=== PATIENT | female | born 1940 | race Caucasian/White ===

== ENCOUNTER → 2018-02-07 | Outpatient (CLI) | payer MEDICARE, OTHER ==
[2015-09-21 11:14] VITALS: BMI 25.4
[~2018-02-07] MED LIST: AMLO-39 PO; AZIT-1 PO; CALC-852 PO; DULO30CA35 PO; FLU45SYR17 IM; FLU45SYR25 IM ONLY; HYDR-2966 PO; LEVO-85 PO; LEVO88TA45 PO; LIDO700A29 TD; METR-160 PO; MULT-27 PO; NAPR220C12 PO; OMEG-23 PO; PER PO; PNEI IM; PNEU0.5D3 IM; SIMV-49 PO; ZOST19404 SQ; [UNRECOGNIZED DRUG - CODE] PO
[2018-02-07 09:11] LABS: PLATELET COUNT, AUTOMATED 249 K/uL (150-450)
[2018-02-07 09:25] LABS: LDL CHOLESTEROL 97 mg/dl
== END ==
LOC: LAB 08:43
PROVIDERS: ATTEND Nurse Practitioner Family
DX: R73.01 Impaired fasting glucose (principal); E78.5 Hyperlipidemia, unspecified; E03.9 Hypothyroidism, unspecified; I10 Essential (primary) hypertension
CPT/HCPCS: 36415; 82040; 82247; 82310; 82374; 82435; 82465; 82565; 82947; 83036; 83718; 84075; 84132; 84155; 84295; 84443; 84450; 84460; 84478; 84520; 85025

== ENCOUNTER → 2018-08-16 | Outpatient (CLI) | payer MEDICARE, OTHER ==
[2015-09-21 11:14] VITALS: BMI 25.4
[~2018-08-16] MED LIST changes: +AMOX-559 PO; +HYDR30CR10 TP; +VARI50KI IM
[2018-08-16 10:02] LABS: PLATELET COUNT, AUTOMATED 239 K/uL (150-450)
[2018-08-16 10:46] LABS: LDL CHOLESTEROL 104 mg/dl
== END ==
LOC: LAB 09:31
PROVIDERS: ATTEND Nurse Practitioner Family
DX: E78.5 Hyperlipidemia, unspecified (principal); E03.9 Hypothyroidism, unspecified; I10 Essential (primary) hypertension; R73.01 Impaired fasting glucose
CPT/HCPCS: 36415; 82040; 82247; 82310; 82374; 82435; 82465; 82565; 82947; 83036; 83718; 84075; 84132; 84155; 84295; 84443; 84450; 84460; 84478; 84520; 85025

== ENCOUNTER → 2018-10-20 | Outpatient (CLI) | payer MEDICARE, OTHER ==
[2015-09-21 11:14] VITALS: BMI 25.4
[~2018-10-20] MED LIST changes: -METR-160 PO; +METR500T15 PO; +ROSU20TA5 PO
== END ==
LOC: LAB 10:22
PROVIDERS: ATTEND Nurse Practitioner Family
DX: E78.5 Hyperlipidemia, unspecified (principal)
CPT/HCPCS: 36415; 82465; 83718; 84478

== ENCOUNTER → 2018-10-21 | Outpatient (CLI) | payer MEDICARE, OTHER ==
[2015-09-21 11:14] VITALS: BMI 25.4
--- NOTE | 2018-10-24 10:23 | RADIOLOGY IMAGING REPORT ---
FACILITY: [facility] PATIENT NAME: EVERARDO DONNELLY : [id number] MR: [id number] V: [id number] EXAM DATE: [id number] ORDERING PHYSICIAN: JOSE F LEVIN TECHNOLOGIST: Mariya Pelayo PROCEDURE:BILATERAL DIGITAL SCREENING MAMMOGRAM WITH CAD ASSISTED INTERPRETATION & 3D TOMOSYNTHESIS COMPARISON:Prior mammograms 08/24/17, 09/15/16, 02/25/16, 11/23/13, 07/27/12. INDICATIONS:SCREENING FINDINGS: The breasts are heterogeneously dense which can obscure small masses. The parenchymal pattern has remained stable allowing for difference in mammographic technique & patient positioning. There is no evidence of malignant appearing mass, malignant appearing calcifications or other secondary sign of malignancy in either breast. DIAGNOSTIC CATEGORY 1--NEGATIVE. RECOMMENDATIONS: ROUTINE MAMMOGRAM AND CLINICAL EVALUATION. IMPRESSION: BIRADS 1: Negative. No significant abnormality is seen. Dictated by: Tammy Henderson M.D. on 10/21/2018 at 13:55 Transcribed by: JONG on 10/21/2018 at 14:01 Approved by: Tammy Henderson M.D. on 10/24/2018 at 10:22 [facility]
== END ==
LOC: MAMO 04:14
PROVIDERS: ATTEND Nurse Practitioner Family
DX: Z12.31 Encounter for screening mammogram for malignant neoplasm of breast (principal)
CPT/HCPCS: 77063; 77067

== ENCOUNTER → 2019-03-20 | Outpatient (CLI) | payer MEDICARE, OTHER ==
[2015-09-21 11:14] VITALS: BMI 25.4
[~2019-03-20] MED LIST changes: +LEVO75TA73 PO; +LIDO700A19 TOP
[2019-03-20 12:27] LABS: LDL CHOLESTEROL 73 mg/dl
== END ==
LOC: LAB 11:53
PROVIDERS: ATTEND Nurse Practitioner Family
DX: E78.5 Hyperlipidemia, unspecified (principal); E03.9 Hypothyroidism, unspecified; I10 Essential (primary) hypertension
CPT/HCPCS: 36415; 82040; 82247; 82310; 82374; 82435; 82465; 82565; 82947; 83718; 84075; 84132; 84155; 84295; 84443; 84450; 84460; 84478; 84520